=== PATIENT | male | born 1955 | race Caucasian/White ===

== ENCOUNTER 2017-05-01 05:47 | Emergency (ER) | payer OTHER ==
[~2017-05-01] VITALS: Ht 170.2 cm; Wt 88.5 kg
[2017-05-01 06:08] VITALS: Ht 170.2 cm; Wt 88.5 kg
[2017-05-01] MEDS ORDERED: CIPR7.5D4 RIGHT EAR (06:24)
--- NOTE | 2017-05-01 06:33 | ERA ---
ER Documentation Chief Complaint Date/Time DATE: 05/01/17 TIME: 06:26 Chief Complaint R ear pain x 1 week HPI This is a 61-year-old male who presents with a chief complaint of right ear ache 2 days. History of type 2 diabetes mellitus. Patient states that the ear discomfort started shortly after swimming 2 days ago. Patient has not done anything to relieve the symptoms. Patient had recent similar symptoms in the left ear 1-2 weeks ago in which she went to his PCP and was not diagnosed. Was told to get an [id number] medication that he cannot remember. Symptoms spontaneously resolved. Denies trauma, fever, change in hearing, tinnitus, headache, dizziness or neck stiffness. No recent travel and vaccination status is up-to-date. ROS All systems reviewed and are negative except as per history of present illness. Medications Home Meds Active Scripts Ciprofloxacin Hcl/Dexameth (Ciprodex Otic Suspension) 7.5 Ml Drops.susp, 4 DROP RIGHT EAR BID for 7 Days, EA Prov:EDDIE VILLEDA PA-C 05/01/17 Physical Exam Vitals Vital Signs Date Time Temp Pulse Resp B/P Pulse Ox O2 Delivery O2 Flow Rate FiO2 05/01/17 06:08 98.1 99 17 131/85 98 Physical Exam Const: Healthy-appearing. Well-nourished. Well-developed. No acute distress. Ears: Erythematous and edematous right external auditory ear canal. Tympanic membrane visualized and within normal limits. Light cone reflex visualized bilaterally. Left otoscope exam unremarkable. Oral: No oral edema visualized. Mucous membranes moist and pink. Neck: No cervical lymphadenopathy, masses or goiter palpated. Non- tender. Trachea midline. Supple ~ No meningismus. Neur: Finger-rub test unremarkable. Awake, alert and oriented x3. Neurovascularly intact bilaterally. Pulm: No dyspnea, stridor, tripoding or drooling. Good air movement. Clear to auscultation bilaterally. Nose: Normal external nose; no discharge, septal deviation, or sinus tenderness. Head: Normocephalic, Atraumatic. Eyes: Non-injected; No scleral erythema, discharge or foreign body. EOMI and BREN bilaterally. Cardio: Regular rate and rhythm; No murmurs, gallops or rubs auscultated. Radial and posterior tibial pulses 2+ bilaterally. Capillary refill less than 2 seconds. Abd: Soft, non tender, non distended. No guarding, masses. Normal bowel sounds. No McBurney's point or suprapubic tenderness. MS: Normal motor strength, normal tone with gross examination. Skin: No petechiae or rashes. Good turgor. Back: No midline, flank or CVA tenderness. Ext: No cyanosis or edema. Normal movement of all extremities grossly observed. Psych: Normal Mood and Affect. Procedures/MDM Patient was evaluated for right ear discomfort presenting as described in the history and physical exam. The patients signs and symptoms are most consistent with otitis externa of the right ear. Patient will be treated outpatient with antibiotic drops. At this time I do not suspect malignant otitis externa, endangerment of hearing, intracranial pathologies, foreign body, meningitis or other SBI. I have spoke with the patient regarding their condition and future management. They have verbally responded that they understand their status and treatment plan. The patients vitals are stable, and their current condition is appropriate for discharge. The patient will be given discharge instructions with return precautions. Discharge medications: Ciprodex GTT Departure Diagnosis: Primary Impression: Otitis externa Qualified Code: H60.331 - Acute swimmer's ear of right side Condition: Stable Patient Instructions: External Ear Infection (Adult) Additional Instructions: Follow up with your PCP within the next 1-3 days for a more thorough evaluation and a possible referral to a specialist. Return the the emergency department immediately if symptoms worsen or change. If you have any questions regarding medications, ask your pharmacist or us before you leave. If any adverse reactions occur while taking your medications, discontinue the treatment and return to the emergency department immediately. Take your medications as directed, and complete the entire course of treatment. EDDIE VILLEDA PA-C May 01, 2017 06:33
== END 2017-05-01 06:53 | disposition home or self-care (01) ==
LOC: FTE 05:47
DX: H60.331 Swimmer's ear, right ear (principal)
CPT/HCPCS: 99283